=== PATIENT | male | born 1995 | race Caucasian/White ===

== ENCOUNTER 2022-04-18 03:42 | Emergency (ER) | payer OTHER ==
[2022-04-18] MEDS ORDERED: BENTYL 20MG TAB20 MG PO (05:03)
[2022-04-18] MEDS ORDERED: ZOFRAN ODT 4 MG4 MG PO (05:03)
== END 2022-04-18 05:38 | disposition home or self-care (01) ==
LOC: ER1 03:42
DX: R10.84 Generalized abdominal pain (principal); R11.2 Nausea with vomiting, unspecified; R19.7 Diarrhea, unspecified; F17.210 Nicotine dependence, cigarettes, uncomplicated; Z88.0 Allergy status to penicillin; Z20.822 Contact with and (suspected) exposure to COVID-19
CPT/HCPCS: 0240U; 99284